=== PATIENT | female | born 1955 | race Caucasian/White ===

== ENCOUNTER 2019-12-25 10:05 | Day surgery (SDC) | payer MEDICARE, BC ==
[2019-12-24 09:51] VITALS: BMI 30.4
[2019-12-25] MEDS ORDERED: Bupivacaine 0.25% HCL 30 ML VIAL ONE (10:59)
[2019-12-25] MEDS ORDERED: Lidocaine 1% w/Epinephrine 1:100K 20 ML VIAL ONE (10:59)
[2019-12-25] MEDS ORDERED: PROPOFOL 200 MG/20 ML VIAL ONE (11:51)
[2019-12-25] MEDS ORDERED: Lidocaine 1% PF 5 ML VIAL ONE (11:51)
[2019-12-25] MEDS ORDERED: Ondansetron PF 4 MG/2 ML Vial ONE (11:51)
[2019-12-25] MEDS ORDERED: Fentanyl 100 MCG/2 ML VIAL ONE (12:00)
--- NOTE | 2019-12-26 06:58 | EKG ---
Test Reason : PREOP Blood Pressure : / mmHG Vent. Rate : 062 BPM Atrial Rate : 062 BPM P-R Int : 134 ms QRS Dur : 088 ms QT Int : 426 ms P-R-T Axes : 034 026 023 degrees QTc Int : 432 ms Normal sinus rhythm Normal ECG No previous ECGs available Confirmed by DR. Klaus SEBASTIAN ([id number]) on 12/26/2019 6:57:48 AM Referred By: EVELYN Confirmed By:DR. Klaus SEBASTIAN
--- NOTE | 2019-12-26 10:34 | OP ---
DATE OF PROCEDURE: 12/25/2019 PREOPERATIVE DIAGNOSIS: Left arm abscess. POSTOPERATIVE DIAGNOSIS: Left arm abscess. PROCEDURE PERFORMED: Incision and drainage of deep left arm abscess. ANESTHESIA: General. ESTIMATED BLOOD LOSS: Minimal. COMPLICATIONS: None. SPECIMEN: None. PROCEDURE IN DETAIL: The patient was taken to the operating room and laid supine on the operating room table. After general anesthetic was obtained, the left arm was prepped and draped in a sterile fashion. Over the most fluctuant part of the abscess, elliptical incision was made. Significant purulence was encountered. The wound was irrigated. All loculations were broken up. No debridement was done. The wound was packed using wet-to-dry saline soaked gauze and sterile dressings. The patient was sent to Recovery in stable condition. All instrument counts, needle counts, and lap counts were correct. Job ID: [id number]
== END 2019-12-25 14:28 | disposition home or self-care (01) ==
LOC: SDC 10:05
PROVIDERS: ATTEND Surgery
PROC: 0J9F0ZZ Drainage of Left Upper Arm Subcutaneous Tissue and Fascia, Open Approach (ICD-10-PCS; principal; 2019-12-25)
DX: L02.414 Cutaneous abscess of left upper limb (principal); I69.354 Hemiplegia and hemiparesis following cerebral infarction affecting left non-dominant side; I10 Essential (primary) hypertension; E78.5 Hyperlipidemia, unspecified; M19.90 Unspecified osteoarthritis, unspecified site; F32.9 Major depressive disorder, single episode, unspecified; F41.9 Anxiety disorder, unspecified; M81.0 Age-related osteoporosis without current pathological fracture; Z87.891 Personal history of nicotine dependence; Z79.899 Other long term (current) drug therapy; Z88.2 Allergy status to sulfonamides
CPT/HCPCS: 10060; 93005; J0690; J2001; J2405; J2704; J3010; 93010; S0020

== ENCOUNTER 2020-04-29 11:06 | Day surgery (SDC) | payer MEDICARE, BC ==
[2020-04-28 10:08] VITALS: BMI 29.5
[2020-04-29] MEDS ORDERED: Lidocaine 1% PF 5 ML VIAL ONE (11:55)
[2020-04-29] MEDS ORDERED: EPHEDRINE 25 MG/5 ML SYRINGE ONE (11:55)
[2020-04-29] MEDS ORDERED: Ondansetron PF 4 MG/2 ML Vial ONE (11:55)
[2020-04-29] MEDS ORDERED: PROPOFOL 200 MG/20 ML VIAL ONE (11:55)
[2020-04-29] MEDS ORDERED: Bupivacaine 0.25% HCL 30 ML VIAL ONE (12:19)
[2020-04-29] MEDS ORDERED: Lidocaine 1% w/Epinephrine 1:100K 20 ML VIAL ONE (12:19)
[2020-04-29] MEDS ORDERED: Famotidine/PF 20 mg/2ml Vial ONE (12:28)
[2020-04-29] MEDS ORDERED: Fentanyl 100 MCG/2 ML VIAL ONE (12:28)
[2020-04-29] MEDS ORDERED: Midazolam HCl 2 mg/2 ml Vial ONE (12:29)
[2020-04-29] MEDS ORDERED: Meperidine HCl/PF 25 MG/ML VIAL ONE (13:55)
--- NOTE | 2020-04-29 18:08 | OP ---
DATE OF PROCEDURE: 04/29/2020 PREOPERATIVE DIAGNOSIS: Nonhealing infected wound, left arm. POSTOPERATIVE DIAGNOSIS: Nonhealing infected wound, left arm. PROCEDURE PERFORMED: Debridement of skin and subcutaneous tissue/incision and drainage of left upper arm wound. ANESTHESIA: General. ESTIMATED BLOOD LOSS: Minimal. COMPLICATIONS: None. FINDINGS: There is a small retained wound VAC sponge in the wound. There is a significant amount of chronic fibrinous infected tissue deep in the wound, tunneled away from the opening. This was all debrided using curette. Cultures were taken for anaerobes and aerobes. DESCRIPTION OF PROCEDURE: The patient was taken to the operating room and laid supine on the operating room table. After general anesthetic was obtained, left upper extremity was prepped and draped in a sterile fashion. The open wound was probed and it traveled anteriorly superiorly for quite a distance. This whole tunnel was unroofed and the skin and subcutaneous tissues were removed full thickness all the way down into the cavity. Curettes were used to remove the chronic fibrinous line, that was at the base of the wound. All necrotic tissue was debrided. The wound was irrigated. There was a small old wound VAC sponge that was removed. The wound was irrigated and closed using wet-to-dry Kerlix followed by dry dressings. The patient was sent to Recovery in stable condition. All instrument counts, needle counts, and lap counts were correct. Job ID: [id number]
== END 2020-04-29 15:49 | disposition home or self-care (01) ==
LOC: SDC 11:06
PROVIDERS: ATTEND Surgery
PROC: 0JBF0ZZ Excision of Left Upper Arm Subcutaneous Tissue and Fascia, Open Approach (ICD-10-PCS; principal; 2020-04-29)
DX: S41.102A Unspecified open wound of left upper arm, initial encounter (principal); I10 Essential (primary) hypertension; E78.5 Hyperlipidemia, unspecified; F41.9 Anxiety disorder, unspecified; F32.9 Major depressive disorder, single episode, unspecified; M81.0 Age-related osteoporosis without current pathological fracture; D64.9 Anemia, unspecified; E66.01 Morbid (severe) obesity due to excess calories; Z68.29 Body mass index [BMI] 29.0-29.9, adult; Z79.82 Long term (current) use of aspirin; Z79.899 Other long term (current) drug therapy; Z88.2 Allergy status to sulfonamides
CPT/HCPCS: 87070; 87077; 87186; 87205; J0690; J2175; J2250; J2405; J2704; J3010; S0020; S0028

== ENCOUNTER 2020-08-11 06:45 | Outpatient (CLI) | payer MEDICARE, BC ==
[2020-08-11 17:30] LABS: Anion Gap 12 mmol/L (10-20); BUN (Urea Nitrogen) 13 mg/dL (9.8-20.1); Calc. Creatinine Clearance 0 mL/min (70-130); Calcium 8.9 mg/dL (7.8-10.44); Carbon Dioxide 29 mmol/L (23-31); Chloride 100 mmol/L (98-107); Glucose 99 mg/dL (80-115); Potassium 3.7 mmol/L (3.5-5.1); Sodium 137 mmol/L (136-145)
[2020-08-11 20:55] LABS: Hemoglobin 9.8 g/dL (12.0-16.0); Mean Corpuscular HGB CONC 29.9 G/DL (32.0-36.0); Mean Corpuscular Hemoglobin 25.3 PG (27.0-33.0); Mean Corpuscular Volume 84.5 fl (80.0-100.0); Mean Platelet Volume 11.2 fl (7.4-10.4); Platelet Count 321 10x3/uL (130-400); RBC Distribution Width 17.8 % (11.5-14.5); Red Blood Cell (RBC) Count 3.88 10x6/uL (3.90-5.20); White Blood Cell (WBC) Count 7.3 10x3/uL (4.5-11.0)
[2020-08-12 13:14] LABS: SARS-CoV-2 MS2 Positive; SARS-CoV-2 N Gene Negative; SARS-CoV-2 S Gene Negative; SARS-CoV-2 by NAA Not Detected (NotDetected); SARS-CoV-2 orf1ab Negative
== END 2020-08-11 06:46 | disposition home or self-care (01) ==
LOC: LABBT 06:45
PROVIDERS: ATTEND Orthopaedic Surgery
DX: Z01.812 Encounter for preprocedural laboratory examination (principal); Z20.828 Contact with and (suspected) exposure to other viral communicable diseases; M86.622 Other chronic osteomyelitis, left humerus
CPT/HCPCS: 80048; 85027; U0003; 87635

== ENCOUNTER 2020-08-16 10:49 | Inpatient (IN) | payer MEDICARE, BC ==
[~2020-08-16 10:49] MED LIST: Heparin 1,000 UNITS/ML VIAL ONE; Ondansetron PF 4 MG/2 ML Vial ONE; PROPOFOL 200 MG/20 ML VIAL ONE; ePHEDrine 50 MG/ML VIAL ONE
[2020-08-16] MEDS ORDERED: Vancomycin 1.5 GRAM/300 ML BAG ONE (12:33)
[2020-08-16] MEDS ORDERED: Midazolam HCl 2 mg/2 ml Vial ONE (12:59)
[2020-08-16] MEDS ORDERED: Fentanyl 100 MCG/2 ML VIAL ONE ×3 (13:34→15:57)
[2020-08-16] MEDS ORDERED: Ondansetron PF 4 MG/2 ML Vial SLOW IVP PRN (14:50)
[2020-08-16] MEDS ORDERED: Acetaminophen 325 MG TAB PO PRN (14:50)
[2020-08-16] MEDS ORDERED: Fentanyl 100 MCG/2 ML VIAL SLOW IVP PRN (14:50)
[2020-08-16] MEDS ORDERED: Communication Order-Pharmacy FS SCH (15:00)
[2020-08-16] MEDS ORDERED: Promethazine HCl 25 MG/ML VIAL IM PRN (15:11)
[2020-08-16] MEDS ORDERED: Ondansetron HCl/PF 4 MG/2 ML Vial IVP PRN (15:11)
[2020-08-16] MEDS ORDERED: Promethazine HCl 25 MG/ML VIAL SLOW IVP PRN (15:11)
[2020-08-16] MEDS ORDERED: HYDROcodone/Acetaminophen 5/325 mg Tablet ONE (17:13)
--- NOTE | 2020-08-16 18:10 | OP ---
DATE OF PROCEDURE: 08/16/2020 PROCEDURE PERFORMED: Irrigation and debridement of left shoulder with left shoulder hardware removal. 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 COMPLICATIONS: None. MOLDER INFLATED BALL: Wilton Stone PA-C IMPLANTS: None. INDICATIONS: Ms. Fuentes is a 65-year-old female who fractured her humerus. She was treated in [place] with open reduction and internal fixation approximately one year ago. She reports doing well initially. She has seeded her shoulder at some point likely with a staphylococcal bacteria. She has had other abscess formation which required irrigation and debridement. She has had two previous I and D's of her left arm prior to seeing myself. She was indicated now by me to remove her hardware to hopefully eradicate infection. It is thought that she has underlying osteomyelitis and hardware infection. Risks have been reviewed and she has elected to proceed. DESCRIPTION OF PROCEDURE: Ms. Fuentes was identified in the preoperative holding area. Her correct extremity was marked. She was carried to the operating room. She was positioned supine. General anesthesia was induced. A multidisciplinary time-out was performed. The left upper extremity was prepped and draped in a sterile fashion. We began the procedure with extending the patient's open abscess wound. This was over the anterolateral arm. It was approximately 4 cm in length. We extended this to 8 cm. We dissected down through the subcutaneous tissues to the fascia and beyond that. We traveled down to the plate level. There was infection extending down to the plate. We cultured this. We used a rongeur as well as curettes to debride the wound. We then made a second incision over the shoulder through the pay for the patient's previous scar. We again dissected down through the subcutaneous tissues to the deltoid, which was split. This brought us down onto the proximal aspect of the plate. At this point, we removed all screws. We then removed the plate. Again, we took a deep culture, there was purulent material. The bone was infected as well. We used a rongeur and performed a deep debridement of the bone as well as a curette. Next, we thoroughly irrigated with copious lavage. We irrigated with 5 L. We then performed a final debridement sharply. Next, we packed the distal wound and partially, we closed the proximal wound. A sterile dressing was applied. We took x-ray images confirming hardware was removed. There were no complications. At this point, we took the patient to the recovery room in good condition. The residential assistant surgeon was responsible for positioning the patient, preparing the injured extremity, applying the tourniquet, and assisting in preparation for surgery. The residential assistant was instrumental in reducing the injured limb by applying traction and reduction maneuvers as well as holding retractors and reduction tools. The residential assistant also was instrumental in assisting in exposure throughout the operation using appropriate retractors. The residential assistant participated in closure of the operative site as well as dressing application and splint application. Job ID: [id number]
[2020-08-17] MEDS: Vancomycin 1.5 GRAM/300 ML BAG 1.5 GM in Premix Bag 1 BAG IVPB SCH ×3 (00:02→23:56)
[2020-08-17] MEDS: Atorvastatin Calcium 40 MG TAB PO SCH ×2 (00:03→21:21)
[2020-08-17] MEDS: HYDROcodone/Acetaminophen 5/325 mg Tablet PO PRN ×4 (00:03→21:20)
[2020-08-17] MEDS: traZODone HCl 50 MG TAB PO SCH ×2 (00:03→21:21)
[2020-08-17 01:09] VITALS: BMI 32.5
[2020-08-17 06:08] LABS: #Eosinphils 0.3 thou/uL (0.0-0.7); #Lymphocytes 1.1 thou/uL (1.20-3.40); #Monocytes 0.6 thou/uL (0.11-0.59); #Neutrophils 4.3 thou/uL (1.40-6.50); %Basophils 0.3 % (0.0-1.0); %Lymphocytes 16.7 % (21.0-51.0); %Neutrophils 68.1 % (42.0-75.0); Hemoglobin 9.5 g/dL (12.0-16.0); Mean Corpuscular HGB CONC 31.3 g/dL (32.0-36.0); Mean Corpuscular Hemoglobin 26.6 pg (27.0-31.0); Mean Corpuscular Volume 84.9 fL (78.0-98.0); Mean Platelet Volume 7.8 fL (7.4-10.4); Platelet Count 305 thou/uL (130-400); RBC Distribution Width 16.3 % (11.5-14.5); Red Blood Cell (RBC) Count 3.56 mill/uL (4.20-5.40); White Blood Cell (WBC) Count 6.4 thou/uL (4.8-10.8)
[2020-08-17 06:49] LABS: ALT (SGPT) 11 U/L (8-55); AST (SGOT) 12 U/L (5-34); Albumin 2.7 g/dL (3.4-4.8); Alkaline Phosphatase 85 U/L (40-110); Anion Gap 10 mmol/L (10-20); BUN (Urea Nitrogen) 8 mg/dL (9.8-20.1); Bilirubin, Total 0.3 mg/dL (0.2-1.2); Calc. Creatinine Clearance 139 mL/min (70-130); Calcium 8.5 mg/dL (7.8-10.44); Carbon Dioxide 26 mmol/L (23-31); Chloride 102 mmol/L (98-107); Globulin 3.2 g/dL (2.4-3.5); Glucose 106 mg/dL (80-115); Potassium 4.4 mmol/L (3.5-5.1); Protein, Total 5.9 g/dL (6.0-8.3); Sodium 134 mmol/L (136-145)
[2020-08-17] MEDS: Metoprolol Tartrate 25 MG TAB PO SCH (07:55)
[2020-08-17] MEDS: Aspirin 81 mg Enteric Coated Tablet PO SCH (07:55)
[2020-08-17] MEDS ORDERED: FLU VACC QS2020-21(65YR UP)/PF 240 MCG/0.7 ML SYRINGE IM ONE (09:00)
--- NOTE | 2020-08-17 16:56 | CON ---
DATE OF CONSULTATION: 08/17/2020 REASON FOR CONSULTATION: Osteomyelitis, left humerus. HISTORY OF PRESENT ILLNESS: A 65-year-old patient, who sustained a fracture with orif in [place] few years ago and then she developed inflammatory changes with abscess formation at the lateral aspect of the left humerus in December and April, which required surgical debridement by Dr. Ng. The first procedure was on January 01, 2020. The note was reviewed, it was fairly brief note. The arm was prepped and there was most fluctuant part of the abscess, elliptical incision made and loculations broken up. No debridement was done. Wound was packed with a simple wound dressing. In April, the problem recurred and Dr. Ng again took her to the OR. Apparently, the wound had been managed with negative pressure dressing and he found some retained wound VAC sponge in the wound and it was removed, and there was some fibrinous infected tissue deep in the wound tunnel away from the opening. There was only culture submitted from the April procedure, which yielded methicillin-resistant Staphylococcus aureus. The patient developed recurrence of the abscess and this time Dr. Ivory was brought in and he realized that this was related to previous hardware that had been used for fixation of the previous fracture of the left shoulder/humerus, so he took her to the OR and the abscess wound was extended over the anterolateral arm about 4 cm in length, dissected to 8 cm. He went down to the plate level. There was evidence of infection extending down to the plate and he used a rongeur and curette to debride the wound. A second incision over the shoulder through the previous scar and dissected down through the subcutaneous tissue to the deltoid, which brought him down to the proximal aspect of the plate and then removed all the screws, removed the plate. Cultures were taken again. The bone appeared infected as well. He used a rongeur and performed deep debridement of the bone as well as a curette. The area was irrigated. Sterile dressing was applied after packing. X-rays were taken to confirm all hardware had been removed. Currently, Ms. Fuentes is awake. She has a history of prior CVA and has a weakness in the left side, a bit of a flat affect. She is able to understand questions, and replies are somewhat sluggish and she does not elaborate much in her answers. Denies any headaches. No visual symptoms, sore throat, odynophagia, or dysphagia. Mild to moderate pain in left shoulder. No shortness of breath or cough. No chest pain. No abdominal pain or diarrhea. She is voiding in the diaper. 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 She has mobility impairment and needs wheelchair for mobilization. She has a history of fracture of the left humerus in [place] and this fracture was fixed in [place] and then now she has developed infection. She also reports heart infection, presumably treated for 4 weeks and she states it was treated at the [facility], which is somewhat unusual, does not explain why she has had this complication. It does not appear that she had this diagnosis at [facility]. There is an echocardiogram that is from May and this showed EF 50% to 55%, mild mitral regurgitation, and a probable aortic valve vegetation from this date. It looks like, this date, she was at the rehab. I do not see any blood cultures positive here though. She states that she had a PICC line placed in the right upper extremity and was treated with vancomycin for about 4 weeks. ALLERGIES: SULFA DRUGS, ADHESIVE TAPE, AND LATEX. FAMILY HISTORY: Noncontributory. SOCIAL HISTORY: She is disabled. Lives in [place]. Never smoker. CURRENT MEDICATIONS: 1. Lipitor. 2. Hydrocodone. 3. Metoprolol. 4. Zoloft. 5. Vancomycin. PHYSICAL EXAMINATION: VITAL SIGNS: T-max 98.5, blood pressure 95/60, saturating 96% on room air, pulse 65. GENERAL: Does not appear in distress. SKIN: Shows areas of maceration, excoriation in the gluteal region left side from dryness and probably moisture accumulation due to her mobility impairment. She may have Ilana superinfection in that area as well. The left humerus dressing was not removed. She has a peripheral IV access and no Barrientos catheter. No lymphadenopathy. HEENT: Ocular movements are conjugate. Oral cavity unremarkable. NECK: Supple. LUNGS: Symmetric, clear breath sounds. HEART: S1 and S2, regular rate without murmurs. ABDOMEN: Soft. Not distended or tender. No ascites. No bladder distention. EXTREMITIES: No joint inflammatory activity outside the area of involvement. Pulses 1+ in dorsalis pedis and popliteal. No edema. Moves all extremities, but she is weaker on the left side. Plantar responses are indifferent on the left and flexor on the right. No clonus. NEUROLOGIC: She is awake, knows her name, a bit sluggish in replies and does not have a big repertoire of answers. Does not elaborate. LABORATORY DATA: White cell count 6.4, hemoglobin 9.5, platelets 305, with 68% neutrophils. Sodium 134, creatinine 0.62. Liver profile normal. Albumin 2.7. COVID-19 PCR not detected on August 11. Urinalysis was not done this time. IMAGING: She had an upper extremity CT from May 23, which showed metal susceptibility artifact, open wound, skin thickening, linear stranding, without abscess. No focal destructive bony lesions. ASSESSMENT: 1. History of prior CVA with distribution of the right middle cerebral artery with residual left hemiparesis. 2. Fracture in [place] few years ago with open reduction and internal fixation. 3. History of aortic valve vegetation identified while the patient was at rehab in May of this year, I did not see any positive blood cultures in the hospital database, so it was not clear how they came about the diagnosis of endocarditis. She was treated with vancomycin reportedly through a PICC line for 4 weeks according to the patient's own recollection. 4. Recurrent abscesses with drainage in the left arm. Initial drainage was in December, the second one in April, those initially were managed as superficial cutaneous abscesses, but obviously they were just a superficial manifestation of the deeper infection of the previous fracture site with involvement of hardware and bone. DISCUSSION: Beyond the evidence of osteomyelitis, which will require at least 6 weeks if not 8 weeks of IV vancomycin through a PICC line, we have to reassess the echocardiogram and see what the vegetation that was identified there status is right now. She may need a CIARA as well. I do not see that blood cultures were taken, and we will go ahead and order some blood cultures to make sure she is not bacteremic, PICC line placement. Job ID: [id number] [facility]
[2020-08-17] MEDS: ALPRAZolam 0.25 MG TAB PO PRN (23:50)
[2020-08-18] MEDS: HYDROcodone/Acetaminophen 5/325 mg Tablet PO PRN (01:42)
[2020-08-18] MEDS: Aspirin 81 mg Enteric Coated Tablet PO SCH (08:34)
[2020-08-18] MEDS: Metoprolol Tartrate 25 MG TAB PO SCH (08:34)
--- NOTE | 2020-08-18 11:37 | SPC ---
SPC CVP LINE PICC INITIAL >5: 08/18/2020 11:34 AM INDICATION: Need for long-term IV access PROCEDURE: Peripherally placed 40 cm single lumen power PICC line. PICC Line Placement: The right arm was prepped and draped in sterile fashion. One percent lidocaine was used for local anesthetic. Under fluoroscopic and ultrasound guidance, the right brachial vein was patent and accessed with a mi cropuncture needle. A guide wire was then advanced into the right brachial vein. A vascular sheath was then advanced over a guide wire, and a single lumen PICC line was trimmed. The PICC line was then advanced into the central venous system. A final placement film demonstrates the tip of the catheter terminated in the caval-atrial junction. After confirmation of the catheter position, the catheter was sutured in place at the skin entry site . There was no immediate complication. Total fluoroscopic time 0.3 minutes. Total exposure 1349 mgray/sq cm IMPRESSION: Peripheral placement of a single lumen power PICC line into the right brachial vein using fluoroscopi c and ultrasound guidance.
[2020-08-18 12:27] LABS: Vancomycin, Trough 24.8 ug/mL
[2020-08-18] MEDS: traMADol HCl 50 MG TAB PO PRN (13:02)
[2020-08-18] MEDS: Vancomycin HCl 1.25 GM in Sodium Chloride 0.9% 250 ML 250 ML IVPB SCH (14:17)
[2020-08-18] MEDS: traZODone HCl 50 MG TAB PO SCH (20:11)
[2020-08-18] MEDS: Atorvastatin Calcium 40 MG TAB PO SCH (20:11)
[2020-08-18] MEDS: ALPRAZolam 0.25 MG TAB PO PRN (20:13)
[2020-08-19] MEDS: traMADol HCl 50 MG TAB PO PRN (01:07)
[2020-08-19] MEDS: Vancomycin HCl 1.25 GM in Sodium Chloride 0.9% 250 ML 250 ML IVPB SCH ×2 (01:09→13:05)
[2020-08-19] MEDS: ALPRAZolam 0.25 MG TAB PO PRN ×2 (01:09→21:30)
[2020-08-19] MEDS: Metoprolol Tartrate 25 MG TAB PO SCH (09:11)
[2020-08-19] MEDS: Aspirin 81 mg Enteric Coated Tablet PO SCH (09:11)
[2020-08-19] MEDS ORDERED: DAPTOmycin 500 MG in Sodium Chloride 0.9% 100 ML IVPB SCH (20:00)
[2020-08-19] MEDS ORDERED: Atorvastatin Calcium 40 MG TAB PO SCH (21:00)
[2020-08-19] MEDS: traZODone HCl 50 MG TAB PO SCH (21:26)
[2020-08-20] MEDS: Vancomycin HCl 1.25 GM in Sodium Chloride 0.9% 250 ML 250 ML IVPB SCH (00:26)
[2020-08-20] MEDS: Metoprolol Tartrate 25 MG TAB PO SCH (09:30)
[2020-08-20] MEDS: Aspirin 81 mg Enteric Coated Tablet PO SCH (09:30)
[2020-08-20] MEDS: traMADol HCl 50 MG TAB PO PRN (11:35)
[2020-08-20 12:04] LABS: Vancomycin, Trough 21.1 ug/mL
[2020-08-20] MEDS: ALPRAZolam 0.25 MG TAB PO PRN (14:51)
[2020-08-20 18:27] VITALS: BP 114/72; TEMP 97.9
== END 2020-08-20 18:19 | disposition home or self-care (01) | DRG 493 ==
LOC: SDC 10:49 → T4-A 14:53
PROVIDERS: ADMIT Orthopaedic Surgery; ATTEND Orthopaedic Surgery
PROC: 0PBD0ZZ Excision of Left Humeral Head, Open Approach (ICD-10-PCS; principal; 2020-08-16)
PROC: 0RPK04Z Removal of Internal Fixation Device from Left Shoulder Joint, Open Approach (ICD-10-PCS; 2020-08-16)
PROC: 02HV33Z Insertion of Infusion Device into Superior Vena Cava, Percutaneous Approach (ICD-10-PCS; 2020-08-18)
PROC: B548ZZA Ultrasonography of Superior Vena Cava, Guidance (ICD-10-PCS; 2020-08-18)
DX: T84.59XA Infection and inflammatory reaction due to other internal joint prosthesis, initial encounter (principal); I69.354 Hemiplegia and hemiparesis following cerebral infarction affecting left non-dominant side; M86.32 Chronic multifocal osteomyelitis, humerus; Y83.9 Surgical procedure, unspecified as the cause of abnormal reaction of the patient, or of later complication, without mention of misadventure at the time of the procedure; E78.5 Hyperlipidemia, unspecified; F32.9 Major depressive disorder, single episode, unspecified; F41.9 Anxiety disorder, unspecified; D64.9 Anemia, unspecified; G47.00 Insomnia, unspecified; M81.0 Age-related osteoporosis without current pathological fracture; Z96.642 Presence of left artificial hip joint; Z98.51 Tubal ligation status; Z98.890 Other specified postprocedural states; Z79.82 Long term (current) use of aspirin; Z79.899 Other long term (current) drug therapy; Z88.2 Allergy status to sulfonamides; Z91.040 Latex allergy status; Z20.828 Contact with and (suspected) exposure to other viral communicable diseases; Z91.048 Other nonmedicinal substance allergy status
CPT/HCPCS: 36415; 36569; 76000; 80053; 80202; 82550; 85025; 87070; 87077; 87186; 87205; 90471; 90662; 93306; C1751; G0008; J0690; J0878; J2250; J2405; J2704; J3010; J3370; J3490; J7050